=== PATIENT | male | born 1975 | race Caucasian/White ===

== ENCOUNTER 2017-02-02 12:37 | Inpatient (IN) | payer OTHER ==
[~2017-02-02] VITALS: Ht 167.6 cm; Wt 74.9 kg
[~2017-02-02 12:37] MED LIST: A/B OTIC15 ML; AMO500 PO; BIA500 PO; CARAFATE1 GM; CARAFATE1 GM PO; FER300 PO; LAC30L PO; NATURAL IRON65 MG PO; PRILOSEC40 MG PO
[2017-02-02 13:39] LABS: BASOPHIL % 0.1 % (0-2); PLATELET COUNT 611 x10^3mcL (130-400); RED CELL DISTRIBUTION WIDTH 18.8 % (11.5-14.5)
[2017-02-02 13:40] LABS: CALCIUM 8.6 mg/dL (8.5-10.1); CARBON DIOXIDE 25.1 mmol/L (21-32); CHLORIDE SERUM 102 mmol/L (98-107); CREATININE SERUM 0.9 mg/dL (0.7-1.3); GFR1 > 60 mL/min; GLUCOSE SERUM 126 mg/dL (74-106); POTASSIUM SERUM 4.3 mmol/L (3.5-5.1); SODIUM SERUM 138 mmol/L (136-145)
[2017-02-02 13:44] LABS: rbc morphology (normal/abnorm) ABNORMAL (NORMAL)
[2017-02-02 13:45] LABS: ALKALINE PHOSPHATASE 150 U/L (46-116); ALT/SGPT 39 U/L (16-63); AMYLASE 25 U/L (25-115); AST/SGOT 14 U/L (15-37); BILIRUBIN TOTAL 0.31 mg/dL (0.20-1.00); LIPASE 107 IU/L (73-393); TOTAL PROTEIN, SERUM 7.7 g/dL (6.4-8.2)
[2017-02-02 13:58] LABS: ALBUMIN 3.1 g/dL (3.4-5.0)
[2017-02-02 15:52] VITALS: BP 111/85
[2017-02-02 17:13] LABS: FREE T4 1.48 ng/dL (0.76-1.46); T3 TOTAL 0.96 ng/mL; T4(THYROXINE) 9.2 ug/dL (4.7-13.3)
[2017-02-02 17:22] LABS: CHOLESTEROL/HDL RATIO 3.8
[2017-02-02 21:06] VITALS: BP 107/65
[2017-02-02 23:10] LABS: UA SPECIFIC GRAVITY >=1.030 (1.005-1.035); microscopic required? YES; urine erythrocyte NEGATIVE (NEGATIVE)
[2017-02-02 23:20] LABS: AMPHETAMINE QUAL UR NONE DETECTED (NEG <=1000)
[2017-02-03] VITALS (7 sets, daily range): BP systolic 97–114; BP diastolic 59–65; Ht 167.6 cm; Wt 74.9 kg
[2017-02-03 06:58] LABS: BASOPHIL % 0.2 % (0-2)
[2017-02-03 07:03] LABS: CALCIUM 8.1 mg/dL (8.5-10.1); CARBON DIOXIDE 26.4 mmol/L (21-32); CHLORIDE SERUM 105 mmol/L (98-107); CREATININE SERUM 0.8 mg/dL (0.7-1.3); GFR1 > 60 mL/min; GLUCOSE SERUM 92 mg/dL (74-106); MAGNESIUM 2.1 mg/dL (1.8-2.4); PHOSPHOROUS 3.9 mg/dL (2.5-4.9); POTASSIUM SERUM 4.2 mmol/L (3.5-5.1); SODIUM SERUM 139 mmol/L (136-145)
[2017-02-03 07:05] LABS: PLATELET COUNT 515 x10^3mcL (130-400); RED CELL DISTRIBUTION WIDTH 18.8 % (11.5-14.5)
[2017-02-03 07:08] LABS: rbc morphology (normal/abnorm) ABNORMAL (NORMAL)
[2017-02-03 12:37] LABS: RED BLOOD CELLS 3.73 M/mm3 (4.52-5.90)
[2017-02-03 13:04] LABS: IRON 79 ug/dL (65-170)
[2017-02-03 13:05] LABS: TOTAL IRON BINDING CAPACITY 171 ug/dL (250-450)
[2017-02-04 00:25] VITALS: BP 102/64
[2017-02-04 05:33] VITALS: BP 98/57
[2017-02-04 06:12] LABS: CALCIUM 8.5 mg/dL (8.5-10.1); CARBON DIOXIDE 28.2 mmol/L (21-32); CHLORIDE SERUM 105 mmol/L (98-107); CREATININE SERUM 0.9 mg/dL (0.7-1.3); GFR1 > 60 mL/min; GLUCOSE SERUM 95 mg/dL (74-106); POTASSIUM SERUM 3.9 mmol/L (3.5-5.1); SODIUM SERUM 141 mmol/L (136-145)
[2017-02-04 06:26] LABS: BASOPHIL % 0.2 % (0-2)
[2017-02-04 07:15] LABS: PLATELET COUNT 531 x10^3mcL (130-400); RED CELL DISTRIBUTION WIDTH 22.9 % (11.5-14.5)
[2017-02-04 07:18] LABS: rbc morphology (normal/abnorm) ABNORMAL (NORMAL)
[2017-02-04 09:35] VITALS: BP 107/72
[2017-02-04 13:04] VITALS: BP 120/68
[2017-02-04 13:07] VITALS: BP 120/68
== END 2017-02-04 14:52 | disposition home or self-care (01) | DRG 240 ==
LOC: ED 12:37 → DU 15:03
PROVIDERS: Emergency Medicine; Family Medicine; Internal Medicine Gastroenterology; ADMIT Family Medicine
PROC: 30233N1 Transfusion of Nonautologous Red Blood Cells into Peripheral Vein, Percutaneous Approach (ICD-10-PCS; 2017-02-03)
PROC: 0DJ08ZZ Inspection of Upper Intestinal Tract, Via Natural or Artificial Opening Endoscopic (ICD-10-PCS; principal; 2017-02-03 10:30)
DX: C16.9 Malignant neoplasm of stomach, unspecified (principal); E44.0 Moderate protein-calorie malnutrition; E11.51 Type 2 diabetes mellitus with diabetic peripheral angiopathy without gangrene; D64.9 Anemia, unspecified; Z80.9 Family history of malignant neoplasm, unspecified
CPT/HCPCS: 43235; 80307; 82962; 83880; 84439; C9113; G0480; J1200; J1610; J2250; J2270; J2310; J2405; J2916; J3010; J3490; J7030; J7040; J7050; J8597; P9016; Q0092; Q0163

== ENCOUNTER 2017-02-21 16:13 | Emergency (ER) | payer OTHER ==
[~2017-02-21] VITALS: Ht 167.6 cm; Wt 69.8 kg
[2017-02-21 17:36] LABS: BASOPHIL % 0.1 % (0-2); PLATELET COUNT 448 x10^3mcL (130-400); RED CELL DISTRIBUTION WIDTH 24.8 % (11.5-14.5)
[2017-02-21 17:41] LABS: CALCIUM 8.6 mg/dL (8.5-10.1); CARBON DIOXIDE 23.5 mmol/L (21-32); CHLORIDE SERUM 99 mmol/L (98-107); CREATININE SERUM 0.9 mg/dL (0.7-1.3); GFR1 > 60 mL/min; GLUCOSE SERUM 109 mg/dL (74-106); SODIUM SERUM 135 mmol/L (136-145)
[2017-02-21 17:59] LABS: ALBUMIN 2.9 g/dL (3.4-5.0); ALKALINE PHOSPHATASE 171 U/L (46-116); ALT/SGPT 51 U/L (16-63); AST/SGOT 25 U/L (15-37); BILIRUBIN TOTAL 0.5 mg/dL (0.20-1.00); TOTAL PROTEIN, SERUM 7.3 g/dL (6.4-8.2)
[2017-02-21 20:04] VITALS: BP 116/85
== END 2017-02-21 20:04 | disposition home or self-care (01) ==
LOC: ED 16:13
PROVIDERS: Emergency Medicine
DX: J02.9 Acute pharyngitis, unspecified (principal); K29.70 Gastritis, unspecified, without bleeding; Z79.899 Other long term (current) drug therapy; Z85.00 Personal history of malignant neoplasm of unspecified digestive organ
CPT/HCPCS: 83880; J7030; Q0092

== ENCOUNTER 2017-02-23 06:45 | Emergency (ER) | payer OTHER ==
[2017-02-23 07:53] LABS: CALCIUM 8.9 mg/dL (8.5-10.1); CARBON DIOXIDE 24.8 mmol/L (21-32); CHLORIDE SERUM 100 mmol/L (98-107); CREATININE SERUM 0.9 mg/dL (0.7-1.3); GFR1 > 60 mL/min; GLUCOSE SERUM 112 mg/dL (74-106); POTASSIUM SERUM 4.5 mmol/L (3.5-5.1); SODIUM SERUM 137 mmol/L (136-145)
[2017-02-23 09:56] VITALS: BP 109/68
[2017-02-23] MEDS ORDERED: OMEPRAZOLE20 M4 PO (19:57)
== END 2017-02-23 09:56 | disposition home or self-care (01) ==
LOC: ED 06:45
PROVIDERS: Emergency Medicine
DX: K29.00 Acute gastritis without bleeding (principal); Z92.21 Personal history of antineoplastic chemotherapy; Z85.028 Personal history of other malignant neoplasm of stomach; Z79.899 Other long term (current) drug therapy
CPT/HCPCS: C9113; J2405; J7030

== ENCOUNTER 2017-02-23 17:41 | Observation (INO) | payer OTHER ==
[~2017-02-23] VITALS: Ht 167.6 cm; Wt 69.8 kg
[2017-02-23 18:58] LABS: CALCIUM 8.4 mg/dL (8.5-10.1); CARBON DIOXIDE 20.3 mmol/L (21-32); CHLORIDE SERUM 100 mmol/L (98-107); CREATININE SERUM 0.7 mg/dL (0.7-1.3); GFR1 > 60 mL/min; GLUCOSE SERUM 102 mg/dL (74-106); SODIUM SERUM 133 mmol/L (136-145)
[2017-02-23 19:03] LABS: ALKALINE PHOSPHATASE 142 U/L (46-116); ALT/SGPT 40 U/L (16-63); AMYLASE 29 U/L (25-115); AST/SGOT 21 U/L (15-37); BILIRUBIN TOTAL 0.31 mg/dL (0.20-1.00); LIPASE 134 IU/L (73-393); TOTAL PROTEIN, SERUM 6.8 g/dL (6.4-8.2)
[2017-02-23 19:06] LABS: ALBUMIN 2.6 g/dL (3.4-5.0)
[2017-02-23 19:07] LABS: PLATELET COUNT 447 x10^3mcL (130-400); RED CELL DISTRIBUTION WIDTH 24.7 % (11.5-14.5)
[2017-02-23 19:42] LABS: BAND NEUTROPHIL 1 % (0-10); BASOPHIL 0 % (0-2); MONOCYTE 1 % (0-7); SEGMENTED NEUTROPHILS 87 % (37-75)
[2017-02-23 19:43] LABS: rbc morphology (normal/abnorm) ABNORMAL (NORMAL)
[2017-02-23 19:46] LABS: ovalocyte/elliptocyte 1+
[2017-02-23 19:47] LABS: PLATELET MORPHOLOGY PLATELETS NORMAL
[2017-02-23] MEDS ORDERED: OMEPRAZOLE20 M4 PO (19:57)
[2017-02-23 21:09] LABS: T3 TOTAL 0.73 ng/mL
[2017-02-23 21:11] LABS: FREE T4 1.41 ng/dL (0.76-1.46); FREE THYROXINE INDEX 2.2 ug/dL (1.4-4.5)
[2017-02-23 21:16] LABS: CHOLESTEROL/HDL RATIO 2.8
[2017-02-24] VITALS (7 sets, daily range): BP systolic 98–140; BP diastolic 52–68; Ht 167.6 cm; Wt 69.8 kg
[2017-02-25 05:44] VITALS: BP 96/59
[2017-02-25 06:10] LABS: PLATELET COUNT 349 x10^3mcL (130-400)
[2017-02-25 06:32] LABS: CALCIUM 7.7 mg/dL (8.5-10.1); CARBON DIOXIDE 26.4 mmol/L (21-32); CHLORIDE SERUM 110 mmol/L (98-107); CREATININE SERUM 0.6 mg/dL (0.7-1.3); GFR1 > 60 mL/min; GLUCOSE SERUM 141 mg/dL (74-106); MAGNESIUM 2.1 mg/dL (1.8-2.4); PHOSPHOROUS 3.8 mg/dL (2.5-4.9); POTASSIUM SERUM 3.6 mmol/L (3.5-5.1); SODIUM SERUM 144 mmol/L (136-145)
[2017-02-25 06:42] LABS: BASOPHIL % 0 % (0-2); RED CELL DISTRIBUTION WIDTH 25.7 % (11.5-14.5)
[2017-02-25 10:20] VITALS: BP 98/60
[2017-02-25 13:18] LABS: BASOPHIL % 0.2 % (0-2)
[2017-02-25 13:39] LABS: PLATELET COUNT 407 x10^3mcL (130-400); RED CELL DISTRIBUTION WIDTH 27.2 % (11.5-14.5)
[2017-02-25] MEDS ORDERED: MYCLUD PO (14:44)
[2017-02-25] MEDS ORDERED: PROTONIX40 MG PO (14:46)
[2017-02-25] MEDS ORDERED: MEDDP PO (14:46)
[2017-02-25] MEDS ORDERED: THO25 PO (14:50)
[2017-02-25 15:00] VITALS: BP 98/60
== END 2017-02-25 16:36 | disposition home or self-care (01) | DRG 249 ==
LOC: ED 17:41 → DU 02-24 00:18 → MU 02-24 00:18 → DU 02-24 00:18 → MU 02-24 12:28
PROVIDERS: Emergency Medicine; ADMIT Family Medicine
DX: R11.2 Nausea with vomiting, unspecified (principal); N17.0 Acute kidney failure with tubular necrosis; C16.9 Malignant neoplasm of stomach, unspecified; E43 Unspecified severe protein-calorie malnutrition; E87.1 Hypo-osmolality and hyponatremia; D50.9 Iron deficiency anemia, unspecified; E11.9 Type 2 diabetes mellitus without complications; R06.6 Hiccough; T45.1X5A Adverse effect of antineoplastic and immunosuppressive drugs, initial encounter; Y92.009 Unspecified place in unspecified non-institutional (private) residence as the place of occurrence of the external cause
CPT/HCPCS: 80307; 83880; 84439; C9113; G0378; J1720; J2405; J7030; J7042; Q0161

== ENCOUNTER 2017-03-15 05:23 | Emergency (ER) | payer OTHER ==
[~2017-03-15 05:23] MED LIST changes: +MEDDP PO; +MYCLUD PO; +OMEPRAZOLE20 M4 PO; +PROTONIX40 MG PO; +THO25 PO
[2017-03-15 06:13] LABS: CALCIUM 8.3 mg/dL (8.5-10.1); CHLORIDE SERUM 103 mmol/L (98-107); CREATININE SERUM 0.8 mg/dL (0.7-1.3); GFR1 > 60 mL/min; GLUCOSE SERUM 121 mg/dL (74-106); POTASSIUM SERUM 3.5 mmol/L (3.5-5.1); SODIUM SERUM 136 mmol/L (136-145)
[2017-03-15 06:18] LABS: ALKALINE PHOSPHATASE 215 U/L (46-116); ALT/SGPT 113 U/L (16-63); AMYLASE 36 U/L (25-115); AST/SGOT 53 U/L (15-37); BILIRUBIN TOTAL 0.5 mg/dL (0.20-1.00); LIPASE 214 IU/L (73-393); TOTAL PROTEIN, SERUM 6.5 g/dL (6.4-8.2)
[2017-03-15 06:22] LABS: BASOPHIL % 0.1 % (0-2); PLATELET COUNT 282 x10^3mcL (130-400)
[2017-03-15 06:23] LABS: ALBUMIN 2.9 g/dL (3.4-5.0)
[2017-03-15 06:33] LABS: RED CELL DISTRIBUTION WIDTH 27.5 % (11.5-14.5)
[2017-03-15 07:32] LABS: rbc morphology (normal/abnorm) ABNORMAL (NORMAL); tear drop cell (dacryocyte) 1+
[2017-03-15 07:33] VITALS: BP 97/60
== END 2017-03-15 07:33 | disposition home or self-care (01) ==
LOC: ED 05:23
PROVIDERS: Emergency Medicine
DX: R11.10 Vomiting, unspecified (principal); R19.7 Diarrhea, unspecified; Z85.00 Personal history of malignant neoplasm of unspecified digestive organ
CPT/HCPCS: 83880; C9113; J1885; J2405; J7030